=== PATIENT | male | born 1955 | race African-American/Black ===

== ENCOUNTER 2019-10-29 14:29 | Observation (INO) | payer OTHER ==
[2019-10-29] MEDS ORDERED: ACETAMINOPHEN 1000 MG/100 ML VIAL (NON FORMULARY) IVPB ONE (16:02)
[2019-10-29] MEDS ORDERED: CEFTRIAXONE 1 GM in DEXTROSE 5%-WATER - 100 ML IVPB ONE (16:02)
[2019-10-29] MEDS ORDERED: CEFTRIAXONE 1 GM/50 ML BAG ONE (16:40)
[2019-10-29] MEDS ORDERED: ACETAMINOPHEN INJECTION 100 ML IVPB ONE (16:40)
[2019-10-29] MEDS ORDERED: SODIUM CHLORIDE 2,722 ML IV ONE (17:05)
--- NOTE | 2019-10-29 17:06 | PDOC ---
Documentation entered by Tu Reyes SCRIBE, acting as scribe for Sathish Marroquin MD. Sathish Marroquin MD: This documentation has been prepared by the Eric faust Alexis, SCRIBE, under my direction and personally reviewed by me in its entirety. I confirm that the documentation accurately reflects all work, treatment, procedures, and medical decision making performed by me. Attending Attestation - Resident Resident Name: Madhu Sosa - ED Attending Attestation I have performed the following: I have examined & evaluated the patient, The case was reviewed & discussed with the resident, I agree w/resident's findings & plan, Exceptions are as noted - HPI HPI: 10/29/19 15:43 The patient is a 64 year old male with no PMH who presents to the emergency department for weakness and cough. I saw pt in ED earlier today (pt was registered under different MRN) for cough. CXR was obtained showing likely LLL consolidation. Pt was DC'ed with azithromycin. However, shortly after, pt was found sleeping on bench outside hospital and was brought back to the ED. Pt complains of weakness. The patient denies abdominal/back pain, and shortness of breath. Denies fever, chills, nausea, vomiting, and/or any GI symptoms. Denies any symptoms. Denies any other symptoms. Allergies: NKA Social Hx: Prior substance use, unknown what kind. - Physicial Exam PE: 10/29/19 15:26 See resident exam - Medical Decision Making 10/29/19 17:13 64 M here for cough and weakness. Seen here earlier today and had likely PNA on CXR. Was subsequently DC'ed on azithro but returns, now febrile and hypoxic. - Labs, cultures - abx - Admit Discharge - Discharge Information Problems reviewed: Yes Clinical Impression/Diagnosis: Pneumonia Qualifiers: Pneumonia type: due to unspecified organism Laterality: unspecified laterality Lung location: unspecified part of lung Qualified Code(s): J18.9 - Pneumonia, unspecified organism Sepsis Qualifiers: Sepsis type: sepsis due to unspecified organism Sepsis acute organ dysfunction status: without acute organ dysfunction Qualified Code(s): A41.9 - Sepsis, unspecified organism Condition: Improved Disposition: HOME - Follow up/Referral - Patient Discharge Instructions - Post Discharge Activity
--- NOTE | 2019-10-29 17:08 | PDOC ---
History of Present Illness - General Chief Complaint: Weakness Stated Complaint: SICK Time Seen by Provider: 10/29/19 15:16 - History of Present Illness Initial Comments: 10/29/19 16:59 64yo M with no reported PMH returns to the ER hours after discharge after being found asleep on a table outside the hospital. Was seen in the ED for chest pain, cough, and headache, diagnosed with pneumonia, and sent home on azithromycin. States he does not remember anything after walking out of the hospital. Complains of chest pain since last night, worse with deep breaths, not exertional, as well as cough productive of clear sputum. Also reports generalized headache since last night. No phono/photophobia. PMH/PSH/Meds/Allergies: none reported ROS GENERAL/CONSTITUTIONAL: No fever or chills. No weakness. HEAD, EYES, EARS, NOSE AND THROAT: No change in vision. No ear pain or discharge. No sore throat. CARDIOVASCULAR: chest pain. no shortness of breath RESPIRATORY: cough. no wheezing or hemoptysis. GASTROINTESTINAL: No nausea, vomiting, diarrhea or constipation. GENITOURINARY: No dysuria, frequency, or change in urination. MUSCULOSKELETAL: No joint or muscle swelling or pain. No neck or back pain. SKIN: No rash NEUROLOGIC: headache. no vertigo, loss of consciousness, or change in strength/sensation. ENDOCRINE: No increased thirst. No abnormal weight change HEMATOLOGIC/LYMPHATIC: No anemia, easy bleeding, or history of blood clots. ALLERGIC/IMMUNOLOGIC: No hives or skin allergy. PE GENERAL: Awake, alert, and fully oriented, in no acute distress. temporal wasting HEAD: No signs of trauma, normocephalic, atraumatic EYES: PERRLA, EOMI, sclera anicteric, conjunctiva clear ENT: Auricles normal inspection, hearing grossly normal, nares patent, oropharynx clear without exudates. Moist mucosa NECK: Normal ROM, supple, no lymphadenopathy, JVD, or masses LUNGS: No distress, speaks full sentences, transmitted upper airway sounds and coarse breath sounds throughout L>R HEART: Regular rate and rhythm, normal S1 and S2, no murmurs, rubs or gallops, peripheral pulses normal and equal bilaterally. ABDOMEN: Soft, nontender, normoactive bowel sounds. No guarding, no rebound. No masses EXTREMITIES : Normal inspection, Normal range of motion, no edema. No clubbing or cyanosis. NEUROLOGICAL: Cranial nerves II through XII grossly intact. Normal speech, normal gait, no focal sensorimotor deficits SKIN: Warm, Dry Vital Signs Temp Pulse Resp BP Pulse Ox 101.4 F H 115 H 16 94/59 L 93 L 10/29/19 15:55 10/29/19 14:50 10/29/19 14:50 10/29/19 14:50 10/29/19 14:50 64yo M with no reported PMH returns to the ER hours after discharge after being found asleep on a table outside the hospital. Last memory was of walking out the hospital. Likely fell asleep, and low suspicion for syncope or fall as patient was found sleeping on a table rather than the floor. He has no complaints, but his vitals meet SIRS criteria. He had infiltrate on his CXR from earlier today (in a different chart), so likely septic from community acquired pneumonia. -Sepsis order set -ceftriaxone, tylenol, fluids. Got azithromycin earlier today 10/29/19 17:46 EKG: NSR, rate 92, normal axis and intervals, T-wave inversions in V4-V6 Labs: notable for WBC of 10.5 with 83.2% neutrophils, BUN 18.2, INR 1.24, lactate 2.1 Laboratory Tests 10/29/19 10/29/19 10/29/19 16:25 16:25 16:25 WBC 10.5 H RBC 4.85 Hgb 13.3 Hct 40.8 MCV 84.2 MCH 27.5 MCHC 32.7 RDW 14.0 Plt Count 214 MPV 8.2 Absolute Neuts (auto) 8.8 H Neutrophils % 83.2 H Lymphocytes % 10.9 Monocytes % 5.3 Eosinophils % 0.4 Basophils % 0.2 Nucleated RBC % 0 PT with INR 14.70 H INR 1.24 H PTT (Actin FS) 32.2 Sodium Potassium Chloride Carbon Dioxide Anion Gap BUN Creatinine Est GFR (CKD-EPI)AfAm Est GFR (CKD-EPI)NonAf Random Glucose Lactic Acid Calcium Total Bilirubin AST ALT Alkaline Phosphatase Troponin I < 0.02 Total Protein Albumin 10/29/19 10/29/19 16:25 16:25 WBC RBC Hgb Hct MCV MCH MCHC RDW Plt Count MPV Absolute Neuts (auto) Neutrophils % Lymphocytes % Monocytes % Eosinophils % Basophils % Nucleated RBC % PT with INR INR PTT (Actin FS) Sodium 138 Potassium 3.5 Chloride 100 Carbon Dioxide 30 Anion Gap 8 BUN 18.2 H Creatinine 1.1 Est GFR (CKD-EPI)AfAm 82.95 Est GFR (CKD-EPI)NonAf 71.57 Random Glucose 91 Lactic Acid 2.1 H Calcium 8.5 Total Bilirubin 0.8 AST 12 L ALT 22 Alkaline Phosphatase 59 Troponin I Total Protein 6.7 Albumin 3.4 CXR from visit earlier today was suggestive of pneumonia. Will admit for pneumonia Patient signed out to admitting team 10/29/19 22:05 Past History - Medical History Allergies/Adverse Reactions: Allergies Allergy/AdvReac Type Severity Reaction Status Date / Time No Known Allergies Allergy Verified 10/29/19 14:55 COPD: No Other medical history: unknown - Immunization History Immunization Up to Date: No - Psycho-Social/Smoking History Smoking History: Unknown if ever smoked Have you smoked in the past 12 months: Yes Information on smoking cessation initiated: No - Substance Abuse Hx (Audit-C & DAST Scrn) How often the patient has a drink containing alcohol: Never Score: In Men: 4 or > Positive; In Women: 3 or > Positive: 0 Screen Result (Pos requires Nsg. Audit-10AR): Negative In the last yr the pt used illegal drug/Rx for NonMed reason: No Score: Yes response is considered Positive: 0 Screen Result (Positive result requires Nsg. DAST-10): Negative *Physical Exam - Vital Signs Last Vital Signs Temp Pulse Resp BP Pulse Ox 101.4 F H 115 H 16 94/59 L 93 L 10/29/19 15:55 10/29/19 14:50 10/29/19 14:50 10/29/19 14:50 10/29/19 14:50 ED Treatment Course - LABORATORY CBC & Chemistry Diagram: 10/29/19 16:25 10/29/19 16:25 - Medications Given in the ED: ED Medications Discontinued Medications Generic Name Dose Route Start Last Admin Trade Name Freq PRN Reason Stop Dose Admin Acetaminophen 1,000 mg 10/29/19 16:02 10/29/19 16:15 Ofirmev Injection - IVPB 10/29/19 16:03 1,000 mg ONCE ONE Administration Ceftriaxone Sodium 1 gm/ 100 mls @ 200 mls/hr 10/29/19 16:02 10/29/19 16:50 Dextrose IVPB 10/29/19 16:31 200 mls/hr ONCE ONE Administration Discharge - Discharge Information Problems reviewed: Yes Clinical Impression/Diagnosis: Pneumonia Qualifiers: Pneumonia type: due to unspecified organism Laterality: unspecified laterality Lung location: unspecified part of lung Qualified Code(s): J18.9 - Pneumonia, unspecified organism Sepsis Qualifiers: Sepsis type: sepsis due to unspecified organism Sepsis acute organ dysfunction status: without acute organ dysfunction Qualified Code(s): A41.9 - Sepsis, unspecified organism Condition: Stable - Follow up/Referral - Patient Discharge Instructions - Post Discharge Activity
[2019-10-29 17:16] LABS: BASO % 0.2 % (0-2.0); EOS % 0.4 % (0-4.5); HEMATOCRIT 40.8 % (35.4-49); HEMOGLOBIN 13.3 GM/dL (11.7-16.9); LYMPH % 10.9 % (8-40); MCH 27.5 pg (25.7-33.7); MCHC 32.7 g/dl (32.0-35.9); MEAN CELL VOLUME 84.2 fl (80-96); MEAN PLT VOLUME 8.2 fl (7.5-11.1); MONO % 5.3 % (3.8-10.2); NEUT % 83.2 % (42.8-82.8); PLATELET COUNT 214 K/MM3 (134-434); RBC 4.85 M/mm3 (4.00-5.60); WHITE BLOOD COUNT 10.5 K/mm3 (4.0-10.0)
[2019-10-29 17:20] LABS: INR 1.24 (0.83-1.09); PROTHROMBIN TIME (PATIENT) 14.7 SEC (9.7-13.0)
[2019-10-29 17:23] LABS: ACTIVATED PTT 32.2 SECONDS (25.2-36.5)
[2019-10-29 17:38] LABS: ALBUMIN 3.4 g/dl (3.4-5.0); BILIRUBIN,TOTAL 0.8 mg/dL (0.2-1); BLOOD UREA NITROGEN 18.2 mg/dL (7-18); CALCIUM 8.5 mg/dL (8.5-10.1); CREATININE 1.1 mg/dL (0.55-1.3); POTASSIUM 3.5 mmol/L (3.5-5.1); TOT PROT 6.7 g/dl (6.4-8.2)
[2019-10-29] MEDS ORDERED: ACETAMINOPHEN 325 MG TABLET (FP) PO PRN (18:31)
[2019-10-29] MEDS: SODIUM CHLORIDE 1,000 ML IV SCH (18:57)
--- OUTSIDE RECORDS SUMMARY | 2019-10-29 19:55 | XMS ---
:1955 Author Organization [facility] Support Name Relationship Address Phone UE, UNEMPLOYED Unavailable Unavailable Unavailable DIVINA PARKS SELF / SAME PATIENT [phone] [place] [address] UE Unavailable Unavailable Unavailable Re-disclosure Warning The records that you are about to access may contain information from federally- assisted alcohol or drug abuse programs. If such information is present, then the following federally mandated warning applies: This information has been disclosed to you from records protected by federal confidentiality rules (42 CFR part 2). The federal rules prohibit you from making any further disclosure of this information unless further disclosure is expressly permitted by the written consent of the person to whom it pertains or as otherwise permitted by 42 CFR part 2. A general authorization for the release of medical or other information is NOT sufficient for this purpose. The Federal rules restrict any use of the information to criminally investigate or prosecute any alcohol or drug abuse patient.The records that you are about to access may contain highly sensitive health information, the redisclosure of which is protected by Article 27-F of the [facility] [place] Public Health law. If you continue you may haveaccess to information: Regarding HIV / AIDS; Provided by facilities licensed or operated by the [facility] [place] Office of Mental Health; or Provided by the [facility] [place] Office for People With Developmental Disabilities. If such information is present, then the following [facility] [place] mandated warning applies: This information has been disclosed to you from confidential records which are protected by state law. State law prohibits you from making any further disclosure of this information without the specific written consent of the person to whom it pertains, or as otherwise permitted by law. Any unauthorized further disclosure in violation of state law may result in a fine or usp sentence or both. A general authorization for the release of medical or other information is NOT sufficient authorization for further disclosure. Insurance Providers Payer name Policy type Policy ID Covered Covered constitution party's Policy P carson / Coverage constitution party ID relationship to Arechiga Inf ormation type arechiga MARISA [id number] SP [id number] HEALTH NON CAP MARISA [id number] SP [id number] HEALTH NON CAP SELF PAY SP INSURANCE
--- NOTE | 2019-10-29 21:28 | HP ---
CHIEF COMPLAINT: SOB PCP: denies HISTORY OF PRESENT ILLNESS: 64 M h/o Etoh abuse, cocaine abuse, otherwise does not follow up w/ PCP, presents with fever/chills productive cough w/ green sputum x1 week. PAtient lives in [facility], denies recent travel or sick contacts, endorses SOB worsening a/w fever/chills/productive cough/rigors and and progressive SOB. Endorses he was at [facility] in [place] for similar presentation, denies ever being checked for COVID. Still smokes heavily 1-2 packs per day. ER course was notable for: (1) CXR LLL infilatrate (2) Abx w/ Ceftriaxone>>>>Zosyn given (due to recent admission at [facility]) (3) TWI on EKG (?cocaine induced) Recent Travel: denies PAST MEDICAL HISTORY: as above PAST SURGICAL HISTORY: denies Social History: YES Smoking: YES Alcohol: YES Drugs: YEs (cocaine/tobacco) Allergies No Known Allergies Allergy (Verified 10/29/19 14:55) HOME MEDICATIONS: PHYSICAL EXAMINATION Vital Signs - 24 hr 10/29/19 10/29/19 10/29/19 14:50 15:55 18:03 Temperature 99.1 F 101.4 F H Pulse Rate 115 H Pulse Rate [ 80 Apical] Respiratory 16 23 H Rate Blood Pressure 94/59 L Blood Pressure 117/76 [Left Arm] O2 Sat by Pulse 93 L 96 Oximetry (%) 10/29/19 18:06 Temperature 98.8 F Pulse Rate Pulse Rate [ Apical] Respiratory Rate Blood Pressure Blood Pressure [Left Arm] O2 Sat by Pulse Oximetry (%) GA cachectic, disheveled appearance, smells heavily of cigarette smoke HEENT temporal wasting, AT, dry MM, neck supple, no oral thrush Chest LLB decreased BS, poor inspiratory effort, mild end-expiratory wheeze CVS s1, S2+, RRR Abd Soft, NT, ND, BS+ Ext no LE edema Laboratory Results - last 24 hr 10/29/19 10/29/19 10/29/19 16:25 16:25 16:25 WBC 10.5 H RBC 4.85 Hgb 13.3 Hct 40.8 MCV 84.2 MCH 27.5 MCHC 32.7 RDW 14.0 Plt Count 214 MPV 8.2 Absolute Neuts (auto) 8.8 H Neutrophils % 83.2 H Lymphocytes % 10.9 Monocytes % 5.3 Eosinophils % 0.4 Basophils % 0.2 Nucleated RBC % 0 PT with INR 14.70 H INR 1.24 H PTT (Actin FS) 32.2 Sodium Potassium Chloride Carbon Dioxide Anion Gap BUN Creatinine Est GFR (CKD-EPI)AfAm Est GFR (CKD-EPI)NonAf Random Glucose Lactic Acid Calcium Total Bilirubin AST ALT Alkaline Phosphatase Troponin I < 0.02 Total Protein Albumin 10/29/19 10/29/19 16:25 16:25 WBC RBC Hgb Hct MCV MCH MCHC RDW Plt Count MPV Absolute Neuts (auto) Neutrophils % Lymphocytes % Monocytes % Eosinophils % Basophils % Nucleated RBC % PT with INR INR PTT (Actin FS) Sodium 138 Potassium 3.5 Chloride 100 Carbon Dioxide 30 Anion Gap 8 BUN 18.2 H Creatinine 1.1 Est GFR (CKD-EPI)AfAm 82.95 Est GFR (CKD-EPI)NonAf 71.57 Random Glucose 91 Lactic Acid 2.1 H Calcium 8.5 Total Bilirubin 0.8 AST 12 L ALT 22 Alkaline Phosphatase 59 Troponin I Total Protein 6.7 Albumin 3.4 ASSESSMENT/PLAN: 64 M LLL PNA Possible cocaine induced vasospasm R/o COVID pneumonitis COcaine abuse Etoh abuse Active heavy smoker Lactic acidosis Plan: IVF, abx with Zosyn due to recent admission at [facility] Incentive spirometry, nebs, O2 supplementation to keep sat >92% HOB elevation, supplement PPI Correct electrolytes aggressively obtain Echo Cardiology evaluation for TWI on EKG, avoid BB DVT ppx: Heparin SC Family Medical History Family History: As Documented Visit type - Emergency Visit Emergency Visit: Yes ED Registration Date: 10/29/19 Care time: The patient presented to the Emergency Department on the above date and was hospitalized for further evaluation of their emergent condition. - New Patient This patient is new to me today: Yes Date on this admission: 10/30/19 - Critical Care Critical Care patient: No
[2019-10-30] MEDS ORDERED: PIPERACILLIN/TAZOB 3.375 GM 3.375 GM in DEXTROSE 5%-WATER - 50 ML IVPB SCH (02:00)
[2019-10-30] MEDS ORDERED: PIPERACILLIN/TAZOB 3.375 GM 3.375 GM/50 ML BAG IVPB ONE ×2 (03:26→18:26)
[2019-10-30] MEDS: PIPERACILLIN/TAZOB 3.375 GM 3.375 GM in DEXTROSE 5%-WATER - 50 ML IVPB SCH ×3 (03:33→18:53)
[2019-10-30 06:17] LABS: BASO % 0.2 % (0-2.0); EOS % 0.5 % (0-4.5); HEMATOCRIT 37.6 % (35.4-49); HEMOGLOBIN 12.3 GM/dL (11.7-16.9); LYMPH % 12.1 % (8-40); MCH 27.3 pg (25.7-33.7); MCHC 32.8 g/dl (32.0-35.9); MEAN CELL VOLUME 83.5 fl (80-96); MEAN PLT VOLUME 8.3 fl (7.5-11.1); MONO % 6.4 % (3.8-10.2); NEUT % 80.8 % (42.8-82.8); PLATELET COUNT 203 K/MM3 (134-434); WHITE BLOOD COUNT 9.8 K/mm3 (4.0-10.0)
[2019-10-30 06:44] LABS: ALBUMIN 2.9 g/dl (3.4-5.0); ALK PHOS 47 U/L (45-117); ANION GAP 5 MMOL/L (8-16); BLOOD UREA NITROGEN 18.2 mg/dL (7-18); CALCIUM 8.2 mg/dL (8.5-10.1); CHLORIDE 104 mmol/L (98-107); CHOLESTEROL 115 mg/dL (50-200); CO2 28 mmol/L (21-32); CREATININE 0.9 mg/dL (0.55-1.3); GLUCOSE,RANDOM 99 mg/dL (74-106); HDL CHOLESTEROL 63 mg/dL (40-60); LDL CHOLESTEROL (ONLY SJRH) 47 mg/dL (5-100); MAGNESIUM 2.1 mg/dL (1.8-2.4); PHOSPHOROUS 3.2 mg/dL (2.5-4.9); POTASSIUM 3.7 mmol/L (3.5-5.1); SGOT/AST 9 U/L (15-37); SGPT/ALT 18 U/L (13-61); SODIUM 137 mmol/L (136-145); TOT PROT 5.8 g/dl (6.4-8.2); TRIGLYCERIDES 60 mg/dL (0-150)
[2019-10-30 07:07] LABS: BILIRUBIN,TOTAL 0.8 mg/dL (0.2-1)
[2019-10-30] MEDS: ENOXAPARIN NA (PORCINE) 40 MG/0.4 ML DISP.SYRIN SQ SCH (10:32)
--- NOTE | 2019-10-30 10:43 | CON.ID ---
Consult - Smoking History Smoking history: Unknown if ever smoked Have you smoked in the past 12 months: Yes Home Medications - Allergies Allergies/Adverse Reactions: Allergies Allergy/AdvReac Type Severity Reaction Status Date / Time No Known Allergies Allergy Verified 10/29/19 14:55 Physical Exam Vital Signs: Vital Signs Temperature 100.1 F H 10/30/19 06:17 Pulse Rate 85 10/30/19 09:37 Respiratory Rate 18 10/30/19 09:37 Blood Pressure 126/74 10/30/19 09:37 O2 Sat by Pulse Oximetry (%) 96 10/30/19 09:37 Labs: CBC, BMP 10/30/19 05:26 10/30/19 05:26
--- NOTE | 2019-10-30 11:31 | PN ---
Progress Note (short form) - Note Progress Note: S: Patient hesitant to provide information. Patient smokes 1-3 ppd. EMR reviewed. Patient otherwise not complaining of symptoms during exam Vital Signs Temperature 100.1 F H 10/30/19 06:17 Pulse Rate 85 10/30/19 09:37 Respiratory Rate 18 10/30/19 09:37 Blood Pressure 126/74 10/30/19 09:37 O2 Sat by Pulse Oximetry (%) 96 10/30/19 09:37 PE: *most systems refused* Gen: Layin in bed, NAD, alert, awake LUNG: anterior auscultation with poor inspiratory effort. upper lobe anterior CTA. did not allow for other regions of auscultation CARD: RRR no murmurs ABD: refused exam EXT: Refused exam CBC, BMP 10/30/19 05:26 10/30/19 05:26 Active Medications Acetaminophen (Tylenol -) 650 mg PO Q6H PRN PRN Reason: PAIN LEVEL 7 - 10 Enoxaparin Sodium (Lovenox -) 40 mg SQ DAILY ELEANOR Last Admin: 10/30/19 10:32 Dose: 40 mg Documented by: Sodium Chloride (Normal Saline -) 1,000 mls @ 100 mls/hr IV ASDIR ELEANOR Last Admin: 10/29/19 18:57 Dose: 100 mls/hr Documented by: Piperacillin Sod/Tazobactam (Sod 3.375 gm/ Dextrose) 50 mls @ 100 mls/hr IVPB Q8H-IV ELEANOR; Protocol Assessment/Plan: Sepsis 2/2 Community acquired R/o ongoing cardiac ischemia Cocaine and polysubstance abuse --Patient combative and refusing multiple exam aspects and treatment modalities --Previously wanted to leave AMA, however was discussed with other provider and will stay --Based on EMR patient with cocaine and possibly other substance abuse with questionable chronicity of ECG changes at other facility --ECG and Echocardiogram for evolving changes and hypokinesis respectively --Cardiac monitoring to continue --Will need likely further cardiac workup, however will f/u results of above prior to further investigation --Avoid Beta blockade for now --Maintenance IVF --Zosyn and ID on board for coverage due to recent ABX use and hospital visits ([facility] and [facility]) --Monitor fever trend --Tylenol as needed DVT PPX Dawit Coyle, DO - IM
--- NOTE | 2019-10-30 12:49 | ECHO ---
Name: ADRIEL DIOR Exam:Adult Echocardiogram Study Date: 10/30/2019 11:20 AM Age: 64 yrs Reason For Study: yanejam Height: 66 in Weight: 200 lb BSA: 2.0 m2 MMode/2D Measurements & Calculations IVSd: 0.86 cm Ao root diam: 3.2 cm LVIDd: 4.8 cm LA dimension: 2.8 cm LVIDs: 4.1 cm ACS: 2.3 cm LVPWd: 1.4 cm LVPWs: 1.6 cm EDV(Teich): 108.4 ml ESV(Teich): 72.3 ml LVOT diam: 2.5 cm RV S Obed: 12.2 cm/sec Doppler Measurements & Calculations MV E max obed: 43.4 cm/sec Ao V2 max: 101.0 cm/sec MV A max obed: 57.3 cm/sec Ao max P.1 mmHg MV E/A: 0.76 MV dec time: 0.11 sec DAVID(V,D): 3.0 cm2 LV V1 max P.5 mmHg PA V2 max: 88.2 cm/sec LV V1 max: 61.2 cm/sec PA max P.1 mmHg PI end-d obed: 88.2 cm/sec Med Peak E' Obed: 6.0 cm/sec Med E/e': 7.2 Lat Peak E' Obed: 8.4 cm/sec Lat E/e': 5.1 Procedure A complete two-dimensional transthoracic echocardiogram was performed (2D, M-mode, Doppler and color flow Doppler). Left Ventricle The left ventricle is normal in size. Left ventricular systolic function is moderately reduced. Eject ion Fraction = 35-40%. There is moderate global hypokinesis of the left ventricle. Right Ventricle The right ventricle is normal in size and function. Atria Normal left and right atrial size and function. Mitral Valve There is no mitral regurgitation noted. Tricuspid Valve There is trace tricuspid regurgitation. There was insufficient TR detected to calculate RV systolic p ressure. Aortic Valve No hemodynamically significant valvular aortic stenosis. No aortic regurgitation is present. Pulmonic Valve There is no pulmonic valvular regurgitation. Great Vessels The aortic root is normal size. Pericardium/Pleura There is no pericardial effusion. Interpretation Summary Left ventricular systolic function is moderately reduced. There is moderate global hypokinesis of the left ventricle. The right ventricle is normal in size and function. There is trace tricuspid regurgitation. MD Adriel Sahu 10/30/2019 12:49 PM
--- NOTE | 2019-10-30 14:04 | EKG ---
Test Reason : Blood Pressure : / mmHG Vent. Rate : 092 BPM Atrial Rate : 092 BPM P-R Int : 132 ms QRS Dur : 098 ms QT Int : 354 ms P-R-T Axes : 074 -03 -12 degrees QTc Int : 437 ms NORMAL SINUS RHYTHM T WAVE ABNORMALITY, CONSIDER LATERAL ISCHEMIA ABNORMAL ECG NO PREVIOUS ECGS AVAILABLE Confirmed by DIVINA COPE MD ([id number]) on 10/30/2019 2:04:34 PM Referred By: Confirmed By:DIVINA COPE MD
--- NOTE | 2019-10-30 16:44 | CON.CARD ---
Cardiology Consult (text) - Consultation Consultation Note: cc: cough hpi: 64 m no known pmhx here with cough. Had cough with green sputum, general weakness. No cp sob palps dizzy loc pnd orthopnea le edema. Found to have pna. He denies cardiac hx but echo here shows reduced lvef. Pt smokes cigs and uses cocaine. pmh: per hpi psh: abd surgery social: +tob, +cocaine fam: no premature cad, scd ros: per hpi; all others nl medS: Home Medications Medication Instructions Recorded Amox-Tr/K Cl [Augmentin - 875Mg 1 tab PO BID #14 tablet 10/30/19 Tablet] Azithromycin [Zithromax -] 250 mg PO DAILY 4 Days #4 tablet 10/30/19 pe: Vital Signs Period Temp Pulse Resp BP Sys/Bahena Pulse Ox Last 24 Hr 98.2 F-100.1 F 80-96 18-23 108-126/58-76 95-96 nad no jvd rrr s1s2 nomrg cta bl nleff aao3 no le e/c/c abd nt nd pos bs no jaundice diaphoresis pos dp pt no carotid bruits Laboratory Last Values WBC 9.8 K/mm3 (4.0-10.0) 10/30/19 05:26 RBC 4.50 M/mm3 (4.00-5.60) 10/30/19 05:26 Hgb 12.3 GM/dL (11.7-16.9) 10/30/19 05:26 Hct 37.6 % (35.4-49) 10/30/19 05:26 MCV 83.5 fl (80-96) 10/30/19 05:26 MCH 27.3 pg (25.7-33.7) 10/30/19 05:26 MCHC 32.8 g/dl (32.0-35.9) 10/30/19 05:26 RDW 14.0 % (11.9-15.9) 10/30/19 05:26 Plt Count 203 K/MM3 (134-434) 10/30/19 05:26 MPV 8.3 fl (7.5-11.1) 10/30/19 05:26 Absolute Neuts (auto) 8.0 K/mm3 (1.5-8.0) 10/30/19 05:26 Neutrophils % 80.8 % (42.8-82.8) 10/30/19 05:26 Lymphocytes % 12.1 % (8-40) 10/30/19 05:26 Monocytes % 6.4 % (3.8-10.2) 10/30/19 05:26 Eosinophils % 0.5 % (0-4.5) 10/30/19 05:26 Basophils % 0.2 % (0-2.0) 10/30/19 05:26 Nucleated RBC % 0 % (0-0) 10/30/19 05:26 PT with INR 14.70 SEC (9.7-13.0) H 10/29/19 16:25 INR 1.24 (0.83-1.09) H 10/29/19 16:25 PTT (Actin FS) 32.2 SECONDS (25.2-36.5) 10/29/19 16:25 Sodium 137 mmol/L (136-145) 10/30/19 05:26 Potassium 3.7 mmol/L (3.5-5.1) 10/30/19 05:26 Chloride 104 mmol/L (98-107) 10/30/19 05:26 Carbon Dioxide 28 mmol/L (21-32) 10/30/19 05:26 Anion Gap 5 MMOL/L (8-16) L 10/30/19 05:26 BUN 18.2 mg/dL (7-18) H 10/30/19 05:26 Creatinine 0.9 mg/dL (0.55-1.3) 10/30/19 05:26 Est GFR (CKD-EPI)AfAm 105.72 10/30/19 05:26 Est GFR (CKD-EPI)NonAf 91.22 10/30/19 05:26 Random Glucose 99 mg/dL (74-106) 10/30/19 05:26 Hemoglobin A1c % 6.2 % (4.2-6.3) 10/30/19 10:24 Lactic Acid 2.1 mmol/L (0.4-2.0) H 10/29/19 16:25 Calcium 8.2 mg/dL (8.5-10.1) L 10/30/19 05:26 Phosphorus 3.2 mg/dL (2.5-4.9) 10/30/19 05:26 Magnesium 2.1 mg/dL (1.8-2.4) 10/30/19 05:26 Total Bilirubin 0.8 mg/dL (0.2-1) 10/30/19 05:26 AST 9 U/L (15-37) L 10/30/19 05:26 ALT 18 U/L (13-61) 10/30/19 05:26 Alkaline Phosphatase 47 U/L (45-117) 10/30/19 05:26 Troponin I < 0.02 ng/ml (0.00-0.05) 10/30/19 05:26 Total Protein 5.8 g/dl (6.4-8.2) L 10/30/19 05:26 Albumin 2.9 g/dl (3.4-5.0) L 10/30/19 05:26 Triglycerides 60 mg/dL (0-150) 10/30/19 05:26 Cholesterol 115 mg/dL (50-200) 10/30/19 05:26 Total LDL Cholesterol 47 mg/dL (5-100) 10/30/19 05:26 HDL Cholesterol 63 mg/dL (40-60) H 10/30/19 05:26 TSH 0.98 uIU/ml (0.358-3.74) 10/30/19 05:26 COVID-19 (BERTHA) Not detected (Not Detected) 10/29/19 17:02 cxr: clear ecg: sr nl intervals, no st changes, lat twis, no olds to compare echo 10/2019: mod dec lvef, nl rv, no sig valve path a/p: 64 m no known pmhx here with cough. pna, sepsis: -cont abx per ID -bp improved with ivfs, gentle hydration given reduced lvef systolic chf: -echo here with mod dec lvef, unknown if chronic or new -no signs vol overload, no signs acs -possibly related to acute pna vs chronic from cocaine or other etiology -will start amara-i. avoid bb for now given cocaine use -will need ischemic eval (likely mibi) when acute issues resolved tob use, cocaine use: -cessation discussed
[2019-10-30] MEDS: SODIUM CHLORIDE 1,000 ML IV SCH (19:25)
[2019-10-30 22:23] VITALS: BMI 25.5
[2019-10-31] MEDS ORDERED: DEXTROSE 5%-WATER - 50 ML IVPB ONE ×2 (01:03→09:10)
[2019-10-31] MEDS ORDERED: PIPERACILLIN/TAZOBACTAM 3.375 GM VIAL IVPB ONE ×2 (01:03→09:10)
[2019-10-31 01:37] LABS: METHADONE, UR NEGATIVE ng/ml (CUTOFF=300); PHENCYCLIDINE,URINE NEGATIVE ng/ml (CUTOFF=25); URINE AMPHETAMINES NEGATIVE ng/ml (CUTOFF=500); URINE BARBITURATES NEGATIVE ng/ml (CUTOFF=200)
[2019-10-31 01:43] LABS: PH,URINE 6.5 (5.0-8.0); URINE APPEARANCE CLEAR; URINE BILIRUBIN NEGATIVE (NEGATIVE); URINE COLOR YELLOW; URINE GLUCOSE (UA) NEGATIVE (NEGATIVE); URINE KETONE NEGATIVE (NEGATIVE); URINE LEUK ESTERASE NEGATIVE (NEGATIVE); URINE NITRITE NEGATIVE (NEGATIVE); URINE PROTEIN TRACE (NEGATIVE); URINE UROBILINOGEN 4.0 E.U/dl mg/dL (0.2-1.0)
[2019-10-31] MEDS: PIPERACILLIN/TAZOB 3.375 GM 3.375 GM in DEXTROSE 5%-WATER - 50 ML IVPB SCH ×2 (01:59→09:16)
[2019-10-31 02:02] LABS: OPIATES, URI NEGATIVE ng/ml (CUTOFF=300); URINE BENZODIAZEPINES NEGATIVE ng/ml (CUTOFF=200)
[2019-10-31 02:06] LABS: COCAINE, UR POSITIVE ng/ml (CUTOFF=300)
[2019-10-31] MEDS ORDERED: MELATONIN 5 MG TABLETS PO ONE (03:45)
[2019-10-31 08:26] LABS: BLOOD UREA NITROGEN 24.2 mg/dL (7-18); CREATININE 0.8 mg/dL (0.55-1.3); POTASSIUM 4.4 mmol/L (3.5-5.1)
[2019-10-31] MEDS: SODIUM CHLORIDE 1,000 ML IV SCH (09:16)
[2019-10-31] MEDS: ENOXAPARIN NA (PORCINE) 40 MG/0.4 ML DISP.SYRIN SQ SCH (09:16)
--- NOTE | 2019-10-31 09:24 | PN ---
Progress Note, Physician Chief Complaint: no CP, no sob - Current Medication List Current Medications: Active Medications Acetaminophen (Tylenol -) 650 mg PO Q6H PRN PRN Reason: PAIN LEVEL 7 - 10 Last Admin: 10/31/19 03:25 Dose: 650 mg Documented by: Enoxaparin Sodium (Lovenox -) 40 mg SQ DAILY [facility] Last Admin: 10/31/19 09:16 Dose: 40 mg Documented by: Sodium Chloride (Normal Saline -) 1,000 mls @ 100 mls/hr IV ASDIR ELEANOR Last Admin: 10/31/19 09:16 Dose: 100 mls/hr Documented by: Piperacillin Sod/Tazobactam (Sod 3.375 gm/ Dextrose) 50 mls @ 100 mls/hr IVPB Q8H-IV ELEANOR; Protocol Last Admin: 10/31/19 09:16 Dose: 100 mls/hr Documented by: Lisinopril (Prinivil) 5 mg PO DAILY [facility] Last Admin: 10/31/19 09:16 Dose: 5 mg Documented by: - Objective Vital Signs: Vital Signs Temperature 98.3 F 10/31/19 06:00 Pulse Rate 66 10/31/19 06:00 Respiratory Rate 18 10/31/19 06:00 Blood Pressure 103/60 10/31/19 06:00 O2 Sat by Pulse Oximetry (%) 100 10/31/19 06:00 Constitutional: Yes: No Distress, Calm Eyes: Yes: Conjunctiva Clear Cardiovascular: Yes: Regular Rate and Rhythm Respiratory: Yes: CTA Bilaterally Gastrointestinal: Yes: Soft (nt) Edema: No Peripheral Pulses WNL: Yes Neurological: Yes: Alert, Oriented ...Motor Strength: WNL Labs: CBC, BMP 10/30/19 05:26 10/31/19 07:20 INR, PTT INR 1.24 (0.83-1.09) H 10/29/19 16:25 Laboratory Tests 10/29/19 10/30/19 10/31/19 17:02 05:26 07:20 WBC 9.8 Hgb 12.3 Plt Count 203 Sodium 140 Potassium 4.4 Creatinine 0.8 COVID-19 ([facility]THA) Not detected Assessment/Plan a/p: 64 m no known pmhx here with cough. pna, sepsis: -cont abx per ID -bp improved with ivfs, gentle hydration given reduced lvef systolic chf: -echo here with mod dec lvef, unknown if chronic or new -no signs vol overload, no signs acs -possibly related to acute pna vs chronic from cocaine or other etiology -will start amara-i. avoid bb for now given cocaine use -will need ischemic eval (likely mibi) when acute issues resolved tob use, cocaine use:cessation advised
[2019-10-31 09:42] VITALS: BP 130/76; PULSE 60; TEMP 98
[2019-10-31] MEDS ORDERED: LISINOPRIL 5 MG TABLET PO SCH (10:00)
--- NOTE | 2019-10-31 10:08 | PN ---
Progress Note, Physician History of Present Illness: stable comfortable has been afebrile blood cx negative so far - Current Medication List Current Medications: Active Medications Acetaminophen (Tylenol -) 650 mg PO Q6H PRN PRN Reason: PAIN LEVEL 7 - 10 Last Admin: 10/31/19 03:25 Dose: 650 mg Documented by: Enoxaparin Sodium (Lovenox -) 40 mg SQ DAILY [facility] Last Admin: 10/31/19 09:16 Dose: 40 mg Documented by: Sodium Chloride (Normal Saline -) 1,000 mls @ 100 mls/hr IV ASDIR ELEANOR Last Admin: 10/31/19 09:16 Dose: 100 mls/hr Documented by: Piperacillin Sod/Tazobactam (Sod 3.375 gm/ Dextrose) 50 mls @ 100 mls/hr IVPB Q8H-IV ELEANOR; Protocol Last Admin: 10/31/19 09:16 Dose: 100 mls/hr Documented by: Lisinopril (Prinivil) 5 mg PO DAILY [facility] Last Admin: 10/31/19 09:16 Dose: 5 mg Documented by: - Objective Vital Signs: Vital Signs Temperature 98.0 F 10/31/19 09:40 Pulse Rate 60 10/31/19 09:40 Respiratory Rate 18 10/31/19 09:40 Blood Pressure 130/76 10/31/19 09:40 O2 Sat by Pulse Oximetry (%) 95 10/31/19 09:40 Constitutional: Yes: No Distress, Calm Cardiovascular: Yes: S1, S2 Respiratory: Yes: Regular, CTA Bilaterally Gastrointestinal: Yes: Normal Bowel Sounds, Soft Musculoskeletal: Yes: WNL Extremities: Yes: WNL Neurological: Yes: Alert, Oriented Psychiatric: Yes: Alert, Oriented Labs: CBC, BMP 10/30/19 05:26 10/31/19 07:20 INR, PTT INR 1.24 (0.83-1.09) H 10/29/19 16:25 Assessment/Plan patient with drug abuse stable ahs remianed afebrile plan continue abx for now rest as per the team
--- NOTE | 2019-10-31 14:29 | DS ---
Physical Exam: SUBJECTIVE: Patient seen and examined OBJECTIVE: Vital Signs Period Temp Pulse Resp BP Sys/Bahena Pulse Ox Last 24 Hr 97.9 F-98.5 F 60-78 18-20 103-153/60-80 95-100 PHYSICAL EXAM GENERAL: The patient is awake, alert, and fully oriented, in no acute distress. HEAD: Normal with no signs of trauma. EYES: PERRL, extraocular movements intact, sclera anicteric, conjunctiva clear. ENT: Ears normal, nares patent, oropharynx clear without exudates, moist mucous membranes. NECK: Trachea midline, full range of motion, supple. LUNGS: Breath sounds equal, clear to auscultation bilaterally, no wheezes, no crackles, no accessory muscle use. HEART: Regular rate and rhythm, S1, S2 without murmur, rub or gallop. ABDOMEN: Soft, nontender, nondistended, normoactive bowel sounds, no guarding, no rebound, no hepatosplenomegaly, no masses. EXTREMITIES: 2+ pulses, warm, well-perfused, no edema. NEUROLOGICAL: Cranial nerves II through XII grossly intact. Normal speech, gait not observed. PSYCH: Normal mood, normal affect. SKIN: Warm, dry, normal turgor, no rashes or lesions noted. LABS Laboratory Results - last 24 hr 10/29/19 10/31/19 10/31/19 17:02 00:05 00:05 Sodium Potassium Chloride Carbon Dioxide Anion Gap BUN Creatinine Est GFR (CKD-EPI)AfAm Est GFR (CKD-EPI)NonAf Random Glucose Calcium Urine Color Yellow Urine Appearance Clear Urine pH 6.5 Ur Specific [place] 1.027 Urine Protein Trace Urine Glucose (UA) Negative Urine Ketones Negative Urine Blood Negative Urine Nitrite Negative Urine Bilirubin Negative Urine Urobilinogen 4.0 e.u/dl Ur Leukocyte Esterase Negative Opiates Screen Negative Methadone Screen Negative Barbiturate Screen Negative Phencyclidine Screen Negative Ur Amphetamines Screen Negative MDMA (Ecstasy) Screen Negative Benzodiazepines Screen Negative Cocaine Screen Positive A* U Marijuana (THC) Screen Positive A* COVID-19 ([facility]A) Not detected 10/31/19 07:20 Sodium 140 Potassium 4.4 Chloride 108 H Carbon Dioxide 28 Anion Gap 3 L BUN 24.2 H Creatinine 0.8 Est GFR (CKD-EPI)AfAm 110.96 Est GFR (CKD-EPI)NonAf 95.74 Random Glucose 94 Calcium 8.0 L Urine Color Urine Appearance Urine pH Ur Specific [place] Urine Protein Urine Glucose (UA) Urine Ketones Urine Blood Urine Nitrite Urine Bilirubin Urine Urobilinogen Ur Leukocyte Esterase Opiates Screen Methadone Screen Barbiturate Screen Phencyclidine Screen Ur Amphetamines Screen MDMA (Ecstasy) Screen Benzodiazepines Screen Cocaine Screen U Marijuana (THC) Screen COVID-19 ([facility]THA) HOSPITAL COURSE: 64 YO man with h/o Etoh abuse, cocaine abuse, otherwise does not follow up w/ PCP, presented to ED complaining from fever and cough, you White Cell Count was elevated. You were treated with Antibiotics and your White Cell Count improved. COVID test was negative. echo of the heart that showed moderate decrease in left ventricule ejection fraction, it is unknown if this is chronic or new issue. Cardiology evaluated pt and recommended stress test (MIBI) when his current condition improves, he was started on ACEi. Abx were changed to PO and pt was discharged home for outpatient follow up with cardiology and his PCP. Pt was advised to avoid substance abuse, importance of medication compliance and outpatient follow up were stressed Date of Admission:10/30/19 Date of Discharge: 10/31/19 Minutes to complete discharge: 35 Discharge Summary Problems reviewed: Yes Reason For Visit: SEPSIS PNEUMONIA Condition: Improved - Instructions Diet, Activity, Other Instructions: You were admitted because you had fever and cough, you White Cell Count was elevated. You were treated with Antibiotics and your White Cell Count improved. Your COVID test was negative. You had and echo of the heart that showed moderate decrease in left ventricule ejection fraction, it is unknown if this is chronic or new issue. You need to avoid using cocaine and marijuana along with avoiding smoking, watch your fluid and salt intake. You need to start taking the following new medications: 1. Augmentin 875mg twice daily for five days. 2. lisinopril 5mg daily Please, continue taking the rest of your home medications as instructed Please follow up with your primary care physician in one week, if you do not have one you can come to our clinic. Please follow up with director of ancillary services, to address ECHO findings and possible stress test Call 911 or Return to the Emergency Department if you have worsening of symptoms. Disposition: HOME - Home Medications Comprehensive Discharge Medication List: Ambulatory Orders Amox-Tr/K Cl [Augmentin - 875Mg Tablet] 1 tab PO BID #14 tablet 09/24/20 Lisinopril [Prinivil] 5 mg PO DAILY #30 tablet 10/31/19 This patient is new to me today: Yes Date on this admission: 10/31/19 Emergency Visit: Yes ED Registration Date: 10/30/19 Care time: The patient presented to the Emergency Department on the above date and was hospitalized for further evaluation of their emergent condition. Critical Care patient: No - Discharge Referral Referred to [facility] Med P.C.: No
== END 2019-10-31 12:59 | disposition home or self-care (01) ==
LOC: JER 14:29 → INTOOBSV 17:56 → UNDOADMOB 17:56 → JERBED 17:56 → J6S 10-30 21:51
PROVIDERS: ADMIT Hospitalist; ATTEND Student in an Organized Health Care Education/Training Program
PROC: 3E03329 Introduction of Other Anti-infective into Peripheral Vein, Percutaneous Approach (ICD-10-PCS; principal; 2019-10-30)
PROC: 3E023GC Introduction of Other Therapeutic Substance into Muscle, Percutaneous Approach (ICD-10-PCS; 2019-10-30)
PROC: 3E033NZ Introduction of Analgesics, Hypnotics, Sedatives into Peripheral Vein, Percutaneous Approach (ICD-10-PCS; 2019-10-30)
DX: J18.9 Pneumonia, unspecified organism (principal); I51.9 Heart disease, unspecified; F10.10 Alcohol abuse, uncomplicated; F14.10 Cocaine abuse, uncomplicated; R79.89 Other specified abnormal findings of blood chemistry; Z91.19 Patient's noncompliance with other medical treatment and regimen; F17.210 Nicotine dependence, cigarettes, uncomplicated
CPT/HCPCS: 36415; 71045-TC-FY; 80048; 80053; 80061; 80307; 81003; 83036; 83605; 83721; 83735; 84100; 84443; 84484; 85025; 85610; 85730; 87040; 87086; 87899; 93005; 93010; 93306-TC; 96361; 96365; 96367; 96372; 96375; 99285-25; G0378; J0131; U0003